=== PATIENT | female | born 1960 | race Caucasian/White ===

== ENCOUNTER 2017-05-06 09:36 | Day surgery (SDC) | payer OTHER ==
[~2017-05-06] VITALS: Ht 175.3 cm; Wt 89.5 kg
[2017-05-06] VITALS (11 sets, daily range): BP systolic 141–191; BP diastolic 86–111; PULSE 52–68; TEMP 98.9
[2017-05-06] MEDS ORDERED: COZAAR100 MG PO (10:13)
[2017-05-06] MEDS ORDERED: ASPIRIN 81M81 MG/TA2 PO (10:14)
[2017-05-06] MEDS ORDERED: MULTI VITAMINS1 TAB PO (10:14)
[2017-05-06] MEDS ORDERED: METAMUCIL FIBE1 EACH PO (10:15)
[2017-05-06] MEDS ORDERED: HAIRSKINNAILS PO (10:15)
[2017-05-06 10:21] LABS: HEMATOCRIT 40.1 % (37.0-47.0); HEMOGLOBIN 13.1 g/dl (12.5-16.0); MEAN CELL VOLUME 89 fl (80.0-100.0); MEAN CORPUSCULAR HEMOGLOBIN 29 pg (27.0-31.0); MEAN CORPUSCULAR HGB CONC 33 g/dl (33.0-37.0); MEAN PLATELET VOLUME 9.7 fl (7.4-10.4); PLATELET COUNT 288 K/mm3 (130-400); RED BLOOD COUNT 4.51 M/mm3 (4.10-5.30); REDCELL DISTRIBUTION WIDTH-CV 12.8 % (11.5-14.5); WHITE BLOOD COUNT 4.2 K/mm3 (4.8-10.8)
[2017-05-06 10:23] LABS: PROTHROMBIN TIME 10.9 SECONDS (9.7-12.8)
[2017-05-06 10:29] LABS: CALCIUM 10.1 mg/dL (8.4-10.2); CREATININE, serum 0.68 mg/dL (0.52-1.25); POTASSIUM 4.1 mmol/L (3.4-5.0)
== END 2017-05-06 16:32 | disposition home or self-care (01) ==
LOC: COL.CAR 09:36 → EDSTATUS 11:15 → COL.CAR 16:32
PROVIDERS: Internal Medicine Cardiovascular Disease
DX: R94.39 Abnormal result of other cardiovascular function study (principal); I10 Essential (primary) hypertension; Z87.891 Personal history of nicotine dependence; Z82.49 Family history of ischemic heart disease and other diseases of the circulatory system
CPT/HCPCS: J1644; J2250; J3010; Q9967